=== PATIENT | female | born 1985 | race Caucasian/White ===

== ENCOUNTER 2018-06-06 19:39 | Emergency (ER) | payer BC ==
[~2018-06-06] VITALS: Ht 175.3 cm; Wt 74.4 kg
[2018-06-06] MEDS ORDERED: ALBUTEROL FS 2.5 MG/3 ML VIAL.NEB NEB ONE (20:00)
[2018-06-06] MEDS ORDERED: IV NS 0.9% 500 ML BAG IV ONE (20:00)
[2018-06-06] MEDS ORDERED: IPRATROPIUM NEB FS 0.5 MG/2.5 ML AMPUL.NEB NEB ONE (20:00)
[2018-06-06] MEDS ORDERED: methylPREDNISolone SOD SUCC 125 MG/2ML VIAL IV ONE (20:00)
[2018-06-06] MEDS ORDERED: methylPREDNISolone SOD SUCC 125 MG/2ML VIAL ONE (20:05)
[2018-06-06 20:15] LABS: BASOPHILS # (AUTO) 0.1 /CMM (0.0-0.2); BASOPHILS % (AUTO) 0.8 % (0.0-2.0); EOSINOPHILS % (AUTO) 5.7 % (0.0-6.0); HEMATOCRIT 43 % (33-45); HEMOGLOBIN 14.7 g/dL (11.5-14.8); LYMPHOCYTES # (AUTO) 1.5 /CMM (0.8-4.8); LYMPHOCYTES % (AUTO) 22.8 % (20.0-44.0); MEAN CORPUSCULAR HGB CONC 35 g/dl (31.0-36.0); MEAN CORPUSCULAR VOLUME 86 fL (82-100); MONOCYTES # (AUTO) 0.5 /CMM (0.1-1.30); MONOCYTES % (AUTO) 8.3 % (2.0-12.0); NEUTROPHILS % (AUTO) 62.4 % (43.0-81.0); PLATELET COUNT (AUTO) 191 /CMM (150-450); RED BLOOD CELL COUNT(AUTO) 4.96 MIL/uL (4.0-5.2); WHITE BLOOD COUNT (AUTO) 6.5 K/uL (4.3-11.0)
[2018-06-06] MEDS ORDERED: ALBUTEROL FS 2.5 MG/3 ML VIAL.NEB ONE (20:19)
[2018-06-06] MEDS ORDERED: IPRATROPIUM NEB FS 0.5 MG/2.5 ML AMPUL.NEB ONE (20:19)
--- NOTE | 2018-06-06 20:20 | NUR ---
BIBSELF C/O ASTHMA ATTACK SINCE THIS MORNING. NAD NOTED. AAO X4, AMB WITH STEADY GAIT. RR EVEN AND UNLABORED AT THIS TIME. CONTINUE TO MONITOR.
[2018-06-06] MEDS ORDERED: CT SWABBABLE VALVE TRANS SET 1 EA INFUS.SET MC ONE (20:24)
[2018-06-06] MEDS ORDERED: IV NS 0.9% 250 ML IV ONE (20:24)
[2018-06-06] MEDS ORDERED: IOHEXOL-300 100 ML VIAL IV ONE (20:24)
[2018-06-06 20:25] LABS: CALCIUM, SERUM 9.7 mg/dL (8.5-10.1); CARBON DIOXIDE 22 mmol/L (21-32); CHLORIDE 107 mmol/L (98-107); CREATININE 0.9 mg/dL (0.6-1.3); GLUCOSE 114 mg/dL (74-106); POTASSIUM 3.5 mmol/L (3.5-5.1); SODIUM SERUM 140 mmol/L (136-145); UREA NITROGEN, BLOOD 11 mg/dL (7-18)
[2018-06-06 20:37] LABS: ALANINE AMINOTRANSFERASE 16 U/L (12-78); ALBUMIN 3.7 g/dL (3.4-5.0); ALKALINE PHOSPHATASE 59 U/L (46-116); ASPARTATE AMINOTRANSFERASE 16 U/L (15-37); B-TYPE NATRIURETIC PEPTIDE 20 PG/ML (0-125); BILIRUBIN,DIRECT 0.1 mg/dL (0.0-0.2); BILIRUBIN,TOTAL 0.7 mg/dL (0.2-1.0); TOTAL PROTEIN, SERUM 7.1 g/dL (6.4-8.2)
[2018-06-06] MEDS ORDERED: FAMOTIDINE (20 MG) 20 MG TABLET ONE (21:40)
[2018-06-06 21:46] VITALS: BP 118/71
--- NOTE | 2018-06-06 21:47 | NUR ---
Patient discharged to home in stable condition. Written and verbal after care instructions given. Patient verbalizes understanding of instruction.IV removed. Catheter intact and site benign. Pressure and 4x4 applied to site. No bleeding noted. Ambulatory with steady gait. prescriptions given. nad noted. leaving via private car.
[2018-06-06] MEDS ORDERED: FAMOTIDINE (20 MG) 20 MG TABLET PO ONE (22:00)
== END 2018-06-06 21:49 | disposition home or self-care (01) ==
LOC: ER 19:41
DX: J45.909 Unspecified asthma, uncomplicated (principal); K20.9 Esophagitis, unspecified; M35.00 Sjogren syndrome, unspecified; Z88.6 Allergy status to analgesic agent
CPT/HCPCS: 36415; 71045; 71260; 80048; 80076; 83880; 84484; 85025; 93005; 94644; 96374; 99285; J2930; J7050; Q9967